=== PATIENT | male | born 1950 | race African-American/Black ===

== ENCOUNTER 2022-03-18 15:41 | Inpatient (IN) ==
[2022-03-18] MEDS ORDERED: ACETAMINOPHEN 325 MG TABLET PO PRN (15:57)
[2022-03-18] MEDS ORDERED: ONDANSETRON 4 MG/2 ML VIAL IV PRN (15:57)
[2022-03-18] MEDS ORDERED: GLUCAGON 1 MG VIAL IM PRN (16:01)
[2022-03-18] MEDS ORDERED: PROMETHAZINE 25 MG/1 ML VIAL IM PRN (16:01)
[2022-03-18] MEDS ORDERED: MAGNESIUM HYDROXIDE SUSP 30 ML UDCUP PO PRN (16:01)
[2022-03-18] MEDS ORDERED: BISACODYL 5 MG TABLET PO PRN (16:01)
[2022-03-18] MEDS ORDERED: DEXTROSE 10% 250 ML BAG IV PRN (16:46)
[2022-03-18] MEDS: ALBUTEROL/IPRATROPIUM 3 ML NEB RESP TX SCH (19:40)
[2022-03-18] MEDS: SODIUM CHLORIDE 0.9% 1,000 ML IV SCH (19:47)
[2022-03-18] MEDS: PANTOPRAZOLE 40 MG TABLET PO SCH (19:47)
[2022-03-18] MEDS: cefTRIAXone 1,000 MG in SODIUM CHLORIDE 0.9% 100 ML IV SCH (20:43)
[2022-03-18] MEDS: DOCUSATE SODIUM 100 MG CAPSULE PO SCH (20:44)
[2022-03-19] MEDS: ALBUTEROL/IPRATROPIUM 3 ML NEB RESP TX SCH ×4 (00:40→19:52)
[2022-03-19 04:56] LABS: Basophils # 0.1 10*3/uL (0.0-0.2); Basophils % 0.3 % (0.0-0.8); Eosinophils # 0.4 10*3/uL (0.0-0.87); Eosinophils % 2.9 % (0.00-10.9); Hematocrit 29.1 VOL% (42.0-52.0); Hemoglobin 9.9 GM/DL (14.0-18.0); Immature Granulocytes % 1.7 %; Immature Granulocytes Absolute 0.25 #; Lymphocytes # 2.1 10*3/uL (1.4-4.0); Lymphocytes % 14.1 % (21.2-54.2); Mean Corpuscular Volume 84.1 FL (87-102); Mean Platelet Volume 9.8 FL (9.6-12.0); Monocytes % 13.9 % (1.7-12.7); Neutrophils % 67.1 % (38.7-73.9); Platelet Count 374 T/CUMM (130-400); Red Blood Count 3.46 MC/CUMM (3.8-5.5); Red Cell Distribution Width 13.3 % (9.3-17.3); White Blood Count 14.5 T/CUMM (4-12)
[2022-03-19 05:30] LABS: Bilirubin,Total 1.6 MG/DL (0.20-1.00); Osmolality,Calculated 272.5 MOS/KG (273-304); Potassium 3.4 MMOL/L (3.5-5.1); Total Protein 7.1 G/DL (6.4-8.2)
[2022-03-19] MEDS: SODIUM CHLORIDE 0.9% 1,000 ML IV SCH ×3 (05:51→21:56)
[2022-03-19] MEDS: INSULIN REGULAR 100 UNIT/ML SUBCUT SCH ×2 (08:01→17:17)
[2022-03-19] MEDS ORDERED: DEXTROSE 50% 25 GM/50 ML VIAL IV PRN (09:33)
[2022-03-19] MEDS: PANTOPRAZOLE 40 MG TABLET PO SCH (10:36)
[2022-03-19] MEDS: amLODIPine 10 MG TABLET PO SCH (10:36)
[2022-03-19] MEDS: DOCUSATE SODIUM 100 MG CAPSULE PO SCH ×2 (10:37→21:58)
[2022-03-19] MEDS: ASPIRIN EC 81 MG TABLET PO SCH (10:37)
[2022-03-19] MEDS ORDERED: POTASSIUM CHLORIDE 20 MEQ TABLET PO ONE (10:57)
[2022-03-19] MEDS: MORPHINE 2 MG/1 ML SYRINGE IV PRN (17:28)
[2022-03-19] MEDS: TAMSULOSIN 0.4 MG CAPSULE PO SCH (21:58)
[2022-03-19] MEDS: cefTRIAXone 1,000 MG in SODIUM CHLORIDE 0.9% 100 ML IV SCH (21:58)
[2022-03-20] MEDS: ALBUTEROL/IPRATROPIUM 3 ML NEB RESP TX SCH ×4 (02:03→19:45)
[2022-03-20] MEDS: SODIUM CHLORIDE 0.9% 1,000 ML IV SCH ×2 (03:29→15:35)
[2022-03-20 06:11] LABS: Basophils # 0.1 10*3/uL (0.0-0.2); Basophils % 0.5 % (0.0-0.8); Eosinophils # 0.4 10*3/uL (0.0-0.87); Eosinophils % 2.8 % (0.00-10.9); Hematocrit 30.2 VOL% (42.0-52.0); Hemoglobin 10.1 GM/DL (14.0-18.0); Immature Granulocytes % 4.5 %; Immature Granulocytes Absolute 0.68 #; Lymphocytes # 2.2 10*3/uL (1.4-4.0); Lymphocytes % 14.8 % (21.2-54.2); Mean Corpuscular HGB Conc 33.4 GM/DL (32-36); Mean Corpuscular Volume 83.7 FL (87-102); Mean Platelet Volume 9.8 FL (9.6-12.0); Monocytes # 1.7 10*3/uL (0.11-0.8); Monocytes % 11.6 % (1.7-12.7); Neutrophils % 65.8 % (38.7-73.9); Platelet Count 430 T/CUMM (130-400); Red Blood Count 3.61 MC/CUMM (3.8-5.5); Red Cell Distribution Width 13.8 % (9.3-17.3)
[2022-03-20 06:20] LABS: Calcium 8.8 MG/DL (8.5-10.1); Osmolality,Calculated 276.8 MOS/KG (273-304); Potassium 3.4 MMOL/L (3.5-5.1)
[2022-03-20 06:56] LABS: Band Neutrophils 4 % (0-10); Eosinophils 4 % (0-10); Lymphocytes 11 % (20-55); Platelet Estimate Normal; Total Cells Counted 100
[2022-03-20 06:57] LABS: Anisocytosis 1+; Burr Cells Few
[2022-03-20] MEDS: ASPIRIN EC 81 MG TABLET PO SCH (09:01)
[2022-03-20] MEDS: INSULIN REGULAR 100 UNIT/ML SUBCUT SCH ×2 (09:01→17:33)
[2022-03-20] MEDS: DOCUSATE SODIUM 100 MG CAPSULE PO SCH ×2 (09:02→21:52)
[2022-03-20] MEDS: traMADol 50 MG TABLET PO PRN (09:02)
[2022-03-20] MEDS: PANTOPRAZOLE 40 MG TABLET PO SCH (09:02)
[2022-03-20] MEDS: POTASSIUM CHLORIDE 20 MEQ TABLET PO SCH (09:02)
[2022-03-20] MEDS: amLODIPine 10 MG TABLET PO SCH (09:02)
[2022-03-20 11:53] LABS: Bacteria,Urine Occasional /HPF (Few); Bilirubin,Urine Negative (Negative); Blood, Urine Moderate mg/dL (Negative); Glucose,Urine (UA) Negative (Negative); Ketones,Urine Negative (Negative); Nitrite,Urine Negative (Negative); Protein,Urine Negative (Negative); RBC,Urine 1 /HPF (0-4); Urine Appearance CLEAR (Clear); Urine Color Yellow (Yellow); Urine Specific Gravity 1.008 (1.001-1.035)
[2022-03-20] MEDS: TAMSULOSIN 0.4 MG CAPSULE PO SCH (21:52)
[2022-03-20] MEDS: cefTRIAXone 1,000 MG in SODIUM CHLORIDE 0.9% 100 ML IV SCH (21:53)
[2022-03-20] MEDS: DEXTROMETHORPHAN ER 6 MG/ML 90 ML/BOTTLE PO PRN (21:55)
[2022-03-21] MEDS: ALBUTEROL/IPRATROPIUM 3 ML NEB RESP TX SCH ×4 (00:50→19:14)
[2022-03-21] MEDS: SODIUM CHLORIDE 0.9% 1,000 ML IV SCH ×3 (02:09→22:45)
[2022-03-21] MEDS: MORPHINE 2 MG/1 ML SYRINGE IV PRN ×2 (02:25→19:39)
[2022-03-21 05:30] LABS: Basophils # 0.1 10*3/uL (0.0-0.2); Basophils % 0.5 % (0.0-0.8); Eosinophils # 0.5 10*3/uL (0.0-0.87); Eosinophils % 4.2 % (0.00-10.9); Hematocrit 32.4 VOL% (42.0-52.0); Hemoglobin 10.8 GM/DL (14.0-18.0); Immature Granulocytes % 5.3 %; Lymphocytes # 2.1 10*3/uL (1.4-4.0); Mean Corpuscular HGB Conc 33.3 GM/DL (32-36); Mean Corpuscular Volume 86.9 FL (87-102); Mean Platelet Volume 9.9 FL (9.6-12.0); Monocytes # 1.4 10*3/uL (0.11-0.8); Platelet Count 498 T/CUMM (130-400); Red Blood Count 3.73 MC/CUMM (3.8-5.5); White Blood Count 11.4 T/CUMM (4-12)
[2022-03-21 05:42] LABS: Calcium 9.1 MG/DL (8.5-10.1); Osmolality,Calculated 275.7 MOS/KG (273-304); Potassium 3.8 MMOL/L (3.5-5.1)
[2022-03-21 06:39] LABS: Anisocytosis Slight; Band Neutrophils 3 % (0-10); Eosinophils 10 % (0-10); Lymphocytes 23 % (20-55); Platelet Estimate Normal; Target Cells Few; Total Cells Counted 100
[2022-03-21] MEDS: ASPIRIN EC 81 MG TABLET PO SCH (08:55)
[2022-03-21] MEDS: DOCUSATE SODIUM 100 MG CAPSULE PO SCH ×2 (08:56→21:20)
[2022-03-21] MEDS: PANTOPRAZOLE 40 MG TABLET PO SCH (08:56)
[2022-03-21] MEDS: amLODIPine 10 MG TABLET PO SCH (08:56)
[2022-03-21] MEDS: POTASSIUM CHLORIDE 20 MEQ TABLET PO SCH (08:56)
[2022-03-21] MEDS: INSULIN REGULAR 100 UNIT/ML SUBCUT SCH ×2 (11:26→17:21)
[2022-03-21] MEDS: TAMSULOSIN 0.4 MG CAPSULE PO SCH (21:20)
[2022-03-21] MEDS: cefTRIAXone 1,000 MG in SODIUM CHLORIDE 0.9% 100 ML IV SCH (21:21)
[2022-03-21] MEDS: DEXTROMETHORPHAN ER 6 MG/ML 90 ML/BOTTLE PO PRN (21:25)
[2022-03-22] MEDS: ALBUTEROL/IPRATROPIUM 3 ML NEB RESP TX SCH ×4 (00:19→19:47)
[2022-03-22 04:57] LABS: Basophils # 0.1 10*3/uL (0.0-0.2); Basophils % 0.6 % (0.0-0.8); Eosinophils # 0.5 10*3/uL (0.0-0.87); Eosinophils % 3.8 % (0.00-10.9); Hematocrit 30.9 VOL% (42.0-52.0); Hemoglobin 10.2 GM/DL (14.0-18.0); Immature Granulocytes % 4.9 %; Immature Granulocytes Absolute 0.58 #; Lymphocytes % 17.3 % (21.2-54.2); Mean Corpuscular Volume 87.3 FL (87-102); Mean Platelet Volume 9.3 FL (9.6-12.0); Monocytes # 1.3 10*3/uL (0.11-0.8); Monocytes % 10.7 % (1.7-12.7); Neutrophils % 62.7 % (38.7-73.9); Platelet Count 534 T/CUMM (130-400); Red Blood Count 3.54 MC/CUMM (3.8-5.5); Red Cell Distribution Width 14.2 % (9.3-17.3); White Blood Count 11.8 T/CUMM (4-12)
[2022-03-22 05:14] LABS: Calcium 8.5 MG/DL (8.5-10.1); Osmolality,Calculated 280.3 MOS/KG (273-304); Potassium 3.8 MMOL/L (3.5-5.1)
[2022-03-22 05:20] LABS: Eosinophils 2 % (0-10); Hypochromia Slight; Lymphocytes 20 % (20-55); Platelet Estimate Increased; Total Cells Counted 100
[2022-03-22 05:21] LABS: Microcytosis Slight
[2022-03-22] MEDS: amLODIPine 10 MG TABLET PO SCH (09:11)
[2022-03-22] MEDS: POTASSIUM CHLORIDE 20 MEQ TABLET PO SCH (09:11)
[2022-03-22] MEDS: DOCUSATE SODIUM 100 MG CAPSULE PO SCH ×2 (09:11→20:22)
[2022-03-22] MEDS: PANTOPRAZOLE 40 MG TABLET PO SCH (09:12)
[2022-03-22] MEDS: ASPIRIN EC 81 MG TABLET PO SCH (09:12)
[2022-03-22] MEDS: INSULIN REGULAR 100 UNIT/ML SUBCUT SCH ×2 (09:14→17:26)
[2022-03-22] MEDS: SODIUM CHLORIDE 0.9% 1,000 ML IV SCH ×2 (09:31→20:21)
[2022-03-22] MEDS: cefTRIAXone 1,000 MG in SODIUM CHLORIDE 0.9% 100 ML IV SCH (20:22)
[2022-03-22] MEDS: TAMSULOSIN 0.4 MG CAPSULE PO SCH (20:22)
[2022-03-22] MEDS: traMADol 50 MG TABLET PO PRN (20:42)
[2022-03-23] MEDS: ALBUTEROL/IPRATROPIUM 3 ML NEB RESP TX SCH ×4 (00:36→19:18)
[2022-03-23 05:00] LABS: Basophils # 0.1 10*3/uL (0.0-0.2); Basophils % 0.5 % (0.0-0.8); Eosinophils # 0.3 10*3/uL (0.0-0.87); Hematocrit 32.7 VOL% (42.0-52.0); Hemoglobin 10.5 GM/DL (14.0-18.0); Immature Granulocytes % 4.2 %; Immature Granulocytes Absolute 0.48 #; Lymphocytes # 1.7 10*3/uL (1.4-4.0); Lymphocytes % 14.8 % (21.2-54.2); Mean Corpuscular HGB Conc 32.1 GM/DL (32-36); Mean Corpuscular Volume 87.7 FL (87-102); Mean Platelet Volume 9.2 FL (9.6-12.0); Monocytes # 1.1 10*3/uL (0.11-0.8); Monocytes % 9.4 % (1.7-12.7); Neutrophils % 68.1 % (38.7-73.9); Platelet Count 528 T/CUMM (130-400); Red Blood Count 3.73 MC/CUMM (3.8-5.5); Red Cell Distribution Width 14.5 % (9.3-17.3); White Blood Count 11.5 T/CUMM (4-12)
[2022-03-23 05:12] LABS: Calcium 9.3 MG/DL (8.5-10.1); Osmolality,Calculated 274.7 MOS/KG (273-304); Potassium 3.8 MMOL/L (3.5-5.1)
[2022-03-23] MEDS ORDERED: cefTRIAXone 1,000 MG in SODIUM CHLORIDE 0.9% 100 ML IV ONE (06:48)
[2022-03-23] MEDS: INSULIN REGULAR 100 UNIT/ML SUBCUT SCH ×2 (07:30→17:43)
[2022-03-23] MEDS: SODIUM CHLORIDE 0.9% 1,000 ML IV SCH ×3 (07:44→22:04)
[2022-03-23] MEDS: traMADol 50 MG TABLET PO PRN ×2 (07:45→17:55)
[2022-03-23] MEDS: DOCUSATE SODIUM 100 MG CAPSULE PO SCH ×2 (08:33→22:03)
[2022-03-23] MEDS: ASPIRIN EC 81 MG TABLET PO SCH (08:33)
[2022-03-23] MEDS: POTASSIUM CHLORIDE 20 MEQ TABLET PO SCH (08:33)
[2022-03-23] MEDS: amLODIPine 10 MG TABLET PO SCH (08:33)
[2022-03-23] MEDS: PANTOPRAZOLE 40 MG TABLET PO SCH (08:33)
[2022-03-23] MEDS ORDERED: MIDAZOLAM 2 MG/2 ML VIAL ONE (10:13)
[2022-03-23] MEDS ORDERED: fentaNYL 100 MCG/2 ML VIAL ONE (10:13)
[2022-03-23] MEDS ORDERED: ONDANSETRON 4 MG/2 ML VIAL ONE (11:13)
[2022-03-23] MEDS ORDERED: DEXAMETHASONE 4 MG/1 ML VIAL ONE (11:13)
[2022-03-23] MEDS ORDERED: SEVOFLURANE 1 UNIT/15 MINUTE INH ONE (11:13)
[2022-03-23] MEDS ORDERED: propofoL 200 MG/20 ML VIAL IV ONE (11:13)
[2022-03-23] MEDS ORDERED: ROCURONIUM 50 MG/5 ML VIAL IV ONE (11:13)
[2022-03-23] MEDS ORDERED: SUCCINYLCHOLINE 200 MG/10 ML VIAL ONE (11:13)
[2022-03-23] MEDS ORDERED: LIDOCAINE 2% 5 ML VIAL ONE (11:13)
[2022-03-23] MEDS ORDERED: SUGAMMADEX 200 MG/2 ML VIAL IV ONE (11:25)
[2022-03-23] MEDS ORDERED: DEXTROSE 50% 25 GM/50 ML VIAL IV PRN (13:22)
[2022-03-23] MEDS: MORPHINE 2 MG/1 ML SYRINGE IV PRN ×2 (16:21→22:03)
[2022-03-23] MEDS: TAMSULOSIN 0.4 MG CAPSULE PO SCH (22:03)
[2022-03-23] MEDS: cefTRIAXone 1,000 MG in SODIUM CHLORIDE 0.9% 100 ML IV SCH (22:04)
[2022-03-24] MEDS: ALBUTEROL/IPRATROPIUM 3 ML NEB RESP TX SCH ×3 (01:00→13:20)
[2022-03-24 04:43] LABS: Basophils % 0.2 % (0.0-0.8); Eosinophils % 0.1 % (0.00-10.9); Hematocrit 32.5 VOL% (42.0-52.0); Hemoglobin 10.6 GM/DL (14.0-18.0); Immature Granulocytes % 1.6 %; Immature Granulocytes Absolute 0.21 #; Lymphocytes # 1.6 10*3/uL (1.4-4.0); Lymphocytes % 11.8 % (21.2-54.2); Mean Corpuscular HGB Conc 32.6 GM/DL (32-36); Mean Corpuscular Volume 88.6 FL (87-102); Mean Platelet Volume 8.8 FL (9.6-12.0); Monocytes # 0.9 10*3/uL (0.11-0.8); Monocytes % 6.9 % (1.7-12.7); Neutrophils % 79.4 % (38.7-73.9); Platelet Count 546 T/CUMM (130-400); Red Blood Count 3.67 MC/CUMM (3.8-5.5); Red Cell Distribution Width 14.4 % (9.3-17.3); White Blood Count 13.5 T/CUMM (4-12)
[2022-03-24 05:06] LABS: Calcium 9.2 MG/DL (8.5-10.1); Osmolality,Calculated 277.7 MOS/KG (273-304); Potassium 4.4 MMOL/L (3.5-5.1)
[2022-03-24] MEDS: SODIUM CHLORIDE 0.9% 1,000 ML IV SCH (09:19)
[2022-03-24] MEDS: traMADol 50 MG TABLET PO PRN (09:20)
[2022-03-24] MEDS: DOCUSATE SODIUM 100 MG CAPSULE PO SCH (09:20)
[2022-03-24] MEDS: POTASSIUM CHLORIDE 20 MEQ TABLET PO SCH (09:21)
[2022-03-24] MEDS: PANTOPRAZOLE 40 MG TABLET PO SCH (09:21)
[2022-03-24] MEDS: ASPIRIN EC 81 MG TABLET PO SCH (09:21)
[2022-03-24] MEDS: amLODIPine 10 MG TABLET PO SCH (09:22)
[2022-03-24] MEDS: INSULIN REGULAR 100 UNIT/ML SUBCUT SCH (09:22)
[2022-03-24 12:34] VITALS: BP 146/77
== END 2022-03-24 16:20 | disposition home or self-care (01) | DRG 661 ==
LOC: INTOOBSV 16:00 → N.TELEN 16:00
PROVIDERS: ADMIT Internal Medicine; ATTEND Internal Medicine